=== PATIENT | female | born 1960 | race Caucasian/White ===

== ENCOUNTER 2016-09-22 07:47 | Day surgery (SDC) | payer BC ==
[~2016-09-22] VITALS: Ht 165.1 cm; Wt 66.2 kg
[~2016-09-22 07:47] MED LIST: IBUP-1017 PO; RIZA10TA22 PO
[2016-09-22 08:25] VITALS: O2SAT 96
[2016-09-22] MEDS ORDERED: MIDAZOLAM HCL 5 MG/5 ML VIAL IVP ONE (10:45)
[2016-09-22] MEDS ORDERED: ONDANSETRON HCL 4 MG/2 ML VIAL IVP ONE (10:45)
[2016-09-22] MEDS ORDERED: PROPOFOL 200MG/ 20ML VIAL (DIPRIVAN) IV ONE (10:45)
[2016-09-22] MEDS ORDERED: SEVOFLURANE 15 MIN GAS INH ONE (10:45)
[2016-09-22] MEDS ORDERED: fentaNYL CITRATE/PF 100 MCG/2 ML AMP IVP ONE (10:45)
[2016-09-22] MEDS ORDERED: CIPROFLOXACIN HCL/DEXAMET 7.5 ML OTIC DROPS.SUSP OT ONE (10:45)
[2016-09-22 12:59] VITALS: BP 136/71; PULSE 64; RESP 14
== END 2016-09-22 12:45 | disposition home or self-care (01) ==
LOC: SDS 07:47 → SMU 07:51 → SDS 12:45
PROVIDERS: ATTEND Otolaryngology
DX: T16.2XXA Foreign body in left ear, initial encounter (principal); H68.101 Unspecified obstruction of Eustachian tube, right ear; J45.909 Unspecified asthma, uncomplicated; K21.9 Gastro-esophageal reflux disease without esophagitis; H90.3 Sensorineural hearing loss, bilateral; X58.XXXA Exposure to other specified factors, initial encounter; Y93.89 Activity, other specified; Y92.89 Other specified places as the place of occurrence of the external cause; Y99.8 Other external cause status; J44.9 Chronic obstructive pulmonary disease, unspecified
CPT/HCPCS: 69424; J2250; J2405; J2704; J3010; J7120